=== PATIENT | male | born 1995 | race Caucasian/White ===

== ENCOUNTER 2016-09-12 07:00 | Emergency (ER) | payer BC ==
[2016-09-12 07:08] VITALS: TEMP 98.8
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
[2016-09-12] MEDS ORDERED: TDAP ADULT 0.5 ML INJ (BOOSTRIX) IM ONE (08:05)
[2016-09-12 08:40] VITALS: BP 126/65; PULSE 67; RESP 15; O2SAT 98
== END 2016-09-12 08:39 | disposition home or self-care (01) ==
PROC: 0HQGXZZ Repair Left Hand Skin, External Approach (ICD-10-PCS; principal; 2016-09-12)
PROC: 3E0234Z Introduction of Serum, Toxoid and Vaccine into Muscle, Percutaneous Approach (ICD-10-PCS; principal; 2016-09-12)
DX: S62.324A Displaced fracture of shaft of fourth metacarpal bone, right hand, initial encounter for closed fracture (principal); S66.922A Laceration of unspecified muscle, fascia and tendon at wrist and hand level, left hand, initial encounter; S61.411A Laceration without foreign body of right hand, initial encounter; Z23 Encounter for immunization; Y04.0XXA Assault by unarmed brawl or fight, initial encounter

== ENCOUNTER 2017-08-13 03:35 | Inpatient (IN) | payer BC ==
--- NOTE | 2017-08-13 04:02 | EDPHY ---
H & P Stated Complaint: SI, COMMAND HALLUCINATIONS Time Seen by Provider: 08/13/17 04:02 HPI/ROS: HPI CHIEF COMPLAINT: Suicidal ideation, hearing voices HISTORY OF PRESENT ILLNESS: Patient is a 22-year-old male, presents emergency room with a friend by private vehicle for having thoughts of suicide. He states he is hearing voices. He states that he has been hearing voices and once the voices to stop so he has thoughts of suicide without a specific plan. He does smoke marijuana and states that he does psychedelics. He denies any methamphetamine use. He presents emergency room, cooperative. Positive for suicidal ideation without a specific plan and hearing voices. Patient also reports that he has not had anything to eat or drink in 3 days to starve himself to . I ask him if he ever has a history of psychiatric illness he stays possibly schizophrenia. But he is not on any medication. Past Medical History: Denies medical history Past Surgical History: Denies surgical history Social History: He smokes marijuana and psychedelics Family History: Noncontributory ROS REVIEW OF SYSTEMS: A comprehensive 10 point review of systems is otherwise negative aside from elements mentioned in the history of present illness. Exam Constitutional appears nontoxic triage nursing summary reviewed, vital signs reviewed, awake/alert. Eyes normal conjunctivae and sclera, EOMI, PERRLA. HENT normal inspection, atraumatic, moist mucus membranes, no epistaxis, neck supple/ no meningismus, no raccoon eyes. Respiratory clear to auscultation bilaterally, normal breath sounds, no respiratory distress, no wheezing. Cardiovascular rate normal, regular rhythm, no murmur, no edema, distal pulses normal. Gastrointestinal soft, non-tender, no rebound, no guarding, normal bowel sounds, no distension, no pulsatile mass. Genitourinary no CVA tenderness. Musculoskeletal no midline vertebral tenderness, full range of motion, no calf swelling, no tenderness of extremities, no meningismus, good pulses, neurovascularly intact. Skin pink, warm, & dry, no rash, skin atraumatic. Neurologic awake, alert and oriented x 3, AAOx3, moves all 4 extremities equally, motor intact, sensory intact, CN II-XII intact, normal cerebellar, normal vision, normal speech. Psychiatric normal mood/affect. Heme/Lymph/Immune no lymphadenopathy. Differential Diagnosis: Includes but is not limited to in a particular order: Drug intoxication, underlying mental illness, psychosis, schizophrenia, mood disorder Medical Decision Making: Plan for this patient IV establishment with blood draw , gentle IV fluids, check drug screen. He will need medical clearance for mental health evaluation. Patient be placed on M1 hold by myself for suicidal ideation. Re-evaluation: 0409: Placed on M1 hold. 0700: Patient is on M1 hold. Needs mental health evaluation. Blood work has been reviewed is noted to be slightly dehydrated and dry. Patient received 2 L of fluid here. Patient has been signed over to Dr. Cross at 7 am shift-change. Source: Patient - Personal History Current Tetanus Diphtheria and Acellular Pertussis (TDAP): Yes - Medical/Surgical History Hx Asthma: No Hx Chronic Respiratory Disease: No Hx Diabetes: No Hx Cardiac Disease: No Hx Renal Disease: No Hx Cirrhosis: No Hx Alcoholism: No Hx HIV/AIDS: No Hx Splenectomy or Spleen Trauma: No Other PMH: ADHD, HALLUCINATIONS, SI - Social History Smoking Status: Current every day smoker Constitutional: Initial Vital Signs Temperature (C) 36.6 C 08/13/17 03:49 Heart Rate 56 L 08/13/17 03:49 Respiratory Rate 16 08/13/17 03:49 Blood Pressure 116/74 08/13/17 03:49 O2 Sat (%) 95 08/13/17 03:49 O2 Delivery Mode Room Air Allergies/Adverse Reactions: codeine Allergy (Verified 09/12/16 07:08) Sulfa (Sulfonamide Antibiotics) Allergy (Verified 09/12/16 07:08) Home Medications: Medication Instructions Recorded NK [No Known Home Meds] 09/12/16 Medical Decision Making - Data Points Laboratory Results: Laboratory Results 08/13/17 04:18 08/13/17 04:18 08/13/17 08/13/17 08/13/17 06:27 04:18 04:18 WBC 6.00 10^3/uL 10^3/uL (3.80-9.50) RBC 4.95 10^6/uL 10^6/uL (4.40-6.38) Hgb 15.9 g/dL g/dL (13.7-17.5) Hct 44.4 % % (40.0-51.0) MCV 89.7 fL fL (81.5-99.8) MCH 32.1 pg pg (27.9-34.1) MCHC 35.8 g/dL g/dL (32.4-36.7) RDW 13.1 % % (11.5-15.2) Plt Count 238 10^3/uL 10^3/uL (150-400) MPV 8.6 fL L fL (8.7-11.7) Neut % (Auto) 69.5 % % (39.3-74.2) Lymph % (Auto) 22.3 % % (15.0-45.0) [place] % (Auto) 6.5 % % (4.5-13.0) Eos % (Auto) 0.5 % L % (0.6-7.6) Baso % (Auto) 1.0 % % (0.3-1.7) Nucleat RBC Rel Count 0.0 % % (0.0-0.2) Absolute Neuts (auto) 4.17 10^3/uL 10^3/uL (1.70-6.50) Absolute Lymphs (auto) 1.34 10^3/uL 10^3/uL (1.00-3.00) Absolute Monos (auto) 0.39 10^3/uL 10^3/uL (0.30-0.80) Absolute Eos (auto) 0.03 10^3/uL 10^3/uL (0.03-0.40) Absolute Basos (auto) 0.06 10^3/uL 10^3/uL (0.02-0.10) Absolute Nucleated RBC 0.00 10^3/uL 10^3/uL (0-0.01) Immature Gran % 0.2 % % (0.0-1.1) Immature Gran # 0.01 10^3/uL 10^3/uL (0.00-0.10) Sodium 143 mEq/L mEq/L (135-145) Potassium 4.1 mEq/L mEq/L (3.3-5.0) Chloride 104 mEq/L mEq/L (97-110) Carbon Dioxide 18 mEq/l L mEq/l (22-31) Anion Gap 21 mEq/L H mEq/L (8-16) BUN 38 mg/dL H mg/dL (7-23) Creatinine 1.2 mg/dL mg/dL (0.7-1.3) Estimated GFR > 60 Glucose 76 mg/dL mg/dL (70-100) Calcium 9.5 mg/dL mg/dL (8.5-10.4) Urine Opiates Screen Pending Urine Barbiturates Pending Ur Phencyclidine Scrn Pending Ur Amphetamine Screen Pending U Benzodiazepines Scrn Pending Urine Cocaine Screen Pending U Marijuana (THC) Screen Pending Ethyl Alcohol < 10 mg/dL mg/dL (0-10) Medications Given: Discontinued Medications Sodium Chloride (Ns) 1,000 mls @ 0 mls/hr IV ONCE ONE; Wide Open PRN Reason: Protocol Stop: 08/13/17 04:24 Last Admin: 08/13/17 04:24 Dose: 1,000 mls Sodium Chloride (Ns) 1,000 mls @ 0 mls/hr IV ONCE ONE; Wide Open PRN Reason: Protocol Stop: 08/13/17 05:19 Last Admin: 08/13/17 05:19 Dose: 1,000 mls Departure - Departure Clinical Impression: Dehydration, Suicidal ideation Condition: Fair Referrals: NONE *PRIMARY CARE P,. [Primary Care Provider] - As per Instructions
[2017-08-13] MEDS ORDERED: NS 1,000 ML IV ONE ×2 (04:23→05:18)
[2017-08-13 04:25] LABS: PLATELET COUNT 238 10^3/uL (150-400)
[2017-08-13] MEDS ORDERED: LORazepam 0.5 MG TAB PO PRN (13:43)
[2017-08-13] MEDS ORDERED: OLANZapine DISINTEGR 10 MG TAB PO PRN (13:43)
[2017-08-13] MEDS ORDERED: NICOTINE POLACRILEX 2 MG GUM B PRN (13:43)
[2017-08-13] MEDS ORDERED: MAGNESIUM HYDROXIDE 30 ML UDCUP PO PRN (13:43)
[2017-08-13] MEDS ORDERED: ACETAMINOPHEN 325 MG TAB PO PRN (13:43)
[2017-08-13] MEDS ORDERED: MAG HYDROX/AL HYDROX/SIMETH 30 ML UDCUP PO PRN (13:43)
[2017-08-13] MEDS ORDERED: OLANZapine DISINTEGR 10 MG TAB PO SCH (21:00)
[2017-08-14] MEDS: OMEGA-3 FATTY ACIDS 1,000 MG CAP PO SCH (08:26)
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
--- NOTE | 2017-08-14 15:07 | BCON ---
[f rep st] BEHAVIORAL HEALTH CONSULTATION BEHAVIORAL HEALTH CONSULTATION DATE OF CONSULTATION: 08/14/2017 REFERRING PHYSICIAN: Thanh Hale MD REASON FOR REFERRAL: Medical clearance for inpatient behavioral health stay. HISTORY OF PRESENT ILLNESS: This patient presented to the emergency room, brought in by a friend regarding thoughts of suicide. He had been voluntarily refusing food and fluids for approximately 3 days. He reported that this was an attempt to have the voices that he was hearing actually meet him per the emergency department note. He was hydrated by IV in the emergency department and reports that he has subsequently resumed normal oral food and fluid intake. He has no acute medical complaints. PAST MEDICAL HISTORY: He reports history of Tourette's syndrome and several hand fractures. PAST SURGICAL HISTORY: He has had right hand surgery for metacarpal fractures. MEDICATIONS: Prior to admission, omega-3 fatty acids 1000 mg p.o. daily. SOCIAL HISTORY: He lives alone in an apartment. He works at a [employer] establishment. 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 He is a daily cannabis user and has a history of using psychedelic drugs. FAMILY HISTORY: There is a history of alcoholism in a grandparent. REVIEW OF SYSTEMS: He reports a normal appetite and he is eating and drinking normally. He is not in pain. He denies fevers or chills. He denies weight change. He denies cough or dyspnea. He denies nausea, vomiting, constipation, or diarrhea. Otherwise, a 10-point review of systems is negative. PHYSICAL EXAM: VITAL SIGNS: Blood pressure is 93/54, this was at 6 in the morning, heart rate was 42, respiratory rate is 14, oxygen saturation was 98% on room air, temperature is 36.3 degrees centigrade. GENERAL: This is a well- nourished, well-developed man with long hair and a long rainey, muscular build, cooperative and in no acute distress. HEENT: Extraocular movements are intact. Pupils are equal, round, reactive to light. Mucous membranes are moist. Dentition is in good condition. He has an uncrowded airway, Mallampati class 1. NECK: Supple. HEART: There is a regular rate and rhythm with no murmurs, rubs, or gallops. LUNGS: Clear to auscultation bilaterally. ABDOMEN: Benign. EXTREMITIES: There is no cyanosis, clubbing, or edema. He has well- healed surgical incisions on the back of his right hand. NEUROLOGIC: He is alert and oriented x3. Cranial nerves 2-12 are grossly intact. There is no focal weakness. Sensation is intact to light touch and gait is within normal limits. LABORATORY STUDIES: CBC was overall normal. He had a slightly low mean platelet volume of no clinical significance. Serum chemistry prior to hydration showed a low carbon dioxide at 18, an elevated anion gap of 21. BUN was markedly elevated at 38 and creatinine was 1.2. Otherwise, renal function and electrolytes were within normal limits. TSH was normal. Cholesterol panel was benign. Urinalysis showed 1+ protein and 2+ ketones. Toxicology screen in the urine was negative for any substances of abuse and in the serum was negative for ethyl alcohol. ASSESSMENT/RECOMMENDATIONS: 1. Mental health issues pending further evaluation and management per Psychiatry and the mental health team. 2. Tobacco dependence syndrome. He was advised to quit smoking. 3. Dehydration is likely resolved. 4. Ketosis, likely resulting from reduced oral intake, is also likely resolved. 5. Bradycardia is probably a normal variant in a very active young man with no further evaluation indicated. I see no medical contraindications to this patient's continued stay in the inpatient behavioral health unit or to any psychiatric medications or procedures. Thank you very much for including me in the care of this patient and please do not hesitate to contact me or the hospitalist service should there be need for further medical evaluation. /[id number]/MODL MTDD
[2017-08-14] MEDS: RISPERIDONE 1 MG ODT TAB SL SCH (21:26)
[2017-08-15] MEDS: OMEGA-3 FATTY ACIDS 1,000 MG CAP PO SCH (11:58)
--- NOTE | 2017-08-15 18:36 | SOAPPROG ---
SOAP Progress Note Assessment/Plan: Assessment: Plan: 08/15/17 18:38 Psychosis: Likely linked to cannabis use. May resolve with abstinence. Will not resolve if he continues to use and is likely to persist in the form of Schizophrenia. He is currently experiencing AH's, but is organized and lacks other criteria for that diagnosis. Will continue Risperdal 1mg and monitor. Subjective: Pt seen, discussed with staff and Dr. Hale, chart reviewed. He is pleasant and conversant with me today. We reviewed the events preceding admission and he describes onset of AH's about five months ago. He states, "They are always there, they never go away." He states they have become more intrusive recently and interfere significantly with is functioning. He is hopeful the Risperdal will help. He notes no side effects from the medications and questions whether it is working "because I didn't feel anything different." I reviewed with him the need for the medication to work over a period of time. I emphasized throughout the conversation that the cannabis is a major factor in the emergence of the hallucinations and that it places him at greatly increased risk for development of Schizophrenia. He states, "I don't know if can stop it. It's my medicine." He refers to the fact that it helps with Tourette's sx' s that he has experienced in the past and is calming. We discussed the need to monitor the medication for several days and see if the hallucinations improve. He states he is agreeable to this. Objective: Vital Signs Temp Pulse Resp BP Pulse Ox 36.6 C 51 L 14 115/58 L 96 08/15/17 06:00 08/15/17 06:00 08/15/17 06:00 08/15/17 06:00 08/15/17 06:00 MSE: Calm, coop. Affect is euthymic, stable, approp. Mood is "pretty good." TP is generally linear. TC reveals ongoing report of background, non-command auditory hallucinations. He is A&Ox4 with no evidence of delirium. He denies SI/HI/. - Time Spent With Patient Time Spent With Patient: 25" ICD10 Worksheet Patient Problems: Problems Problem Status Onset Dehydration Acute Suicidal ideation Acute
[2017-08-15] MEDS: RISPERIDONE 1 MG ODT TAB SL SCH (21:31)
--- NOTE | 2017-08-16 16:07 | SOAPPROG ---
SOAP Progress Note Assessment/Plan: Assessment: Plan: 08/15/17 18:38 Psychosis: Likely linked to cannabis use. May resolve with abstinence. Will not resolve if he continues to use and is likely to persist in the form of Schizophrenia. He is currently experiencing AH's, but is organized and lacks other criteria for that diagnosis. Will continue Risperdal 1mg and monitor. 08/16/17 16:07 Psychosis: Improving. CCM. Possible d/c tomorrow if continued improvement. Subjective: Pt seen, discussed with staff. Pleasant and interactive. States the AH's are less intrusive today. C/o having a "migraine headache" with Risperdal last night. He describes this as "pressure on the right side of my head" that lasted 30 minutes after taking the med. He denies hx of h/a's. He states he is close to being ready to leave the hospital and wants to go back to work at the [employer]. I emphasized the need for him to stabilize so he can be successful. Objective: Vital Signs Temp Pulse Resp BP Pulse Ox 36.6 C 80 12 105/64 98 08/16/17 15:08 08/16/17 15:08 08/16/17 15:08 08/16/17 15:08 08/16/17 15:08 MSE: Calm, coop. Affect is euthymic, stable, approp. Mood is "good." TP is generally linear, though wanders at times. TC reveals continued AH's. Denies SI/HI/. - Time Spent With Patient Time Spent With Patient: 25" ICD10 Worksheet Patient Problems: Problems Problem Status Onset Dehydration Acute Suicidal ideation Acute
[2017-08-16] MEDS: OMEGA-3 FATTY ACIDS 1,000 MG CAP PO SCH (17:03)
[2017-08-16] MEDS: RISPERIDONE 1 MG ODT TAB SL SCH (21:40)
[2017-08-17 06:22] VITALS: BP 105/51
[2017-08-17] MEDS: OMEGA-3 FATTY ACIDS 1,000 MG CAP PO SCH (13:48)
== END 2017-08-17 13:20 | disposition home or self-care (01) | DRG 897 ==
LOC: BBEH 12:50
PROVIDERS: ADMIT Psychiatry & Neurology Psychiatry; ATTEND Psychiatry & Neurology Psychiatry
DX: F12.951 Cannabis use, unspecified with psychotic disorder with hallucinations (principal); E86.0 Dehydration; F17.200 Nicotine dependence, unspecified, uncomplicated; E88.89 Other specified metabolic disorders; R00.1 Bradycardia, unspecified
CPT/HCPCS: 80305; G0480